=== PATIENT | male | born 1940 | race African-American/Black ===

== ENCOUNTER 2018-10-29 10:51 | Emergency (ER) | payer OTHER ==
[2018-10-29 11:55] LABS: Urine Color RED
[2018-10-29 11:56] LABS: Urine Appearance CLOUDY
[2018-10-29 11:57] LABS: Urine Bilirubin NEGATIVE (NEG); Urine Blood 3+ (NEG); Urine Glucose NEGATIVE (NEG); Urine Microscopic Reflex ORDER UMIC; Urine Protein 2+ (NEG); Urine Specific Gravity <=1.005 (1.005-1.030); Urine pH 7.5 (5.0-7.0)
[2018-10-29 12:23] LABS: Urine Bacteria <20 /HPF (NONE SEEN); Urine Culture Reflex Order REFLEXED; Urine RBC TNTC /HPF (NONE SEEN)
[2018-10-29] MEDS ORDERED: NACL 0.9% IRR SOLN 2,000 ML IRR ONE (13:14)
[2018-10-29] MEDS ORDERED: LIDOCAINE VISCOUS 2% SOLN 15 ML UDC ONE (13:14)
[2018-10-29 13:36] LABS: Absolute Monocytes 0.5 K/uL (0.1-1.3); Absolute Neutrophil 5.1 K/uL (1.8-8.0); Basophils % 1.2 % (0-1.3); Hematocrit 40.2 % (39.6-49.0); Lymphocytes % 14.1 % (15.3-44.8); MPV 11.3 fL (7.6-11.3); Monocytes % 6.9 % (3.3-12.3); RBC Red Blood Cell Count 4.45 M/uL (4.33-5.43)
[2018-10-29 14:26] LABS: Albumin 3.9 g/dL (3.4-5.0); Bilirubin Total 0.9 mg/dL (0.2-1.0); Potassium 3.9 mmol/L (3.5-5.1); Protein, Total 8.4 g/dL (6.4-8.2)
--- NOTE | 2018-10-29 15:05 | RAD REPORT ---
EXAM DESCRIPTION: CT - Abdomen Pelvis W Contrast - 10/29/2018 2:47 pm CLINICAL HISTORY: Abdominal pain/hematuria COMPARISON: 2016 TECHNIQUE: Computed axial tomography of the abdomen pelvis was obtained. 100 cc Isovue-300 was admin istered intravenously. Oral contrast was not requested which limits evaluation of bowel. All CT scans are performed using dose optimization technique as appropriate and may include automated exposure control or mA/KV adjustment according to patient size. FINDINGS: The liver, spleen, pancreas, and adrenals appear unremarkable. 5.7 centimeter left renal cyst is present. A smaller bilateral additional renal cysts are noted. A Fo irish catheter is present within the bladder. The right posterior-lateral bladder wall it is asymmetric ally thickened. The prostate gland is mildly enlarged. There is no evidence of diverticulitis. Small inguinal hernias are present Mild anterior subluxation of L4 on L5 and L5 on S1 is seen. Spondylolysis involves L5-S1. L4-5 disc i s obliterated Small umbilical hernia is present Wall of the distal stomach appears thickened IMPRESSION: Asymmetric thickening of the right posterolateral bladder wall may be related to cystiti s or mass Apparent thickening of the wall of the distal stomach may be secondary to inflammation
--- NOTE | 2018-10-29 15:09 | ER ---
Nurse's Notes [facility] Name: Adilson Moreira Age: 78 yrs Sex: Male : 1940 Arrival Date: 10/29/2018 Time: 10:55 Bed 20 Private MD: Hever De La Cruz Diagnosis: Acute cystitis with hematuria Presentation: 10/29 11:01 Presenting complaint: Patient states: i saw blood in my urine since yesterday morning; hj denies painful urination; denies fever and chills; denies N/.V;. Transition of care: patient was not received from another setting of care. Onset of symptoms was October 29, 2018. Risk Assessment: Do you want to hurt yourself or someone else? Patient reports no desire to harm self or others. Initial Sepsis Screen: Does the patient meet any 2 criteria? No. Patient's initial sepsis screen is negative. Does the patient have a suspected source of infection? No. Patient's initial sepsis screen is negative. Care prior to arrival: 11:01 Method Of Arrival: Ambulatory 11:01 Acuity: SOURAV 4 hj 11:29 Acuity: SOURAV 3 hb Triage Assessment: 11:03 General: Appears in no apparent distress. uncomfortable, Behavior is calm, cooperative, hj appropriate for age. Pain: Denies pain. Historical: - Allergies: : No Known Allergies; hj - Home Meds: 11:05 amlodipine 10 mg tab 1 tab once daily [Active]; carvedilol 12.5 mg oral tab 1 tab 2 hj times per day [Active]; esomeprazole magnesium 40 mg oral cpDR 1 cap 2 times per day [Active]; aspirin 81 mg Oral TbEC 1 tab once daily [Active]; - PMHx: 11:03 cancer, prostate; DVT; Hyperlipidemia; hj - PSHx: 11:03 Hernia repair; hj - Immunization history:: Adult Immunizations unknown. - Social history:: Smoking status: Patient/guardian denies using tobacco, Patient/guardian denies using alcohol. - Ebola Screening: : Patient negative for fever greater than or equal to 101.5 degrees Fahrenheit, and additional compatible Ebola Virus Disease symptoms Patient denies exposure to infectious person Patient denies travel to an Ebola-affected area in the 21 days before illness onset. Screenin:03 Abuse screen: Denies threats or abuse. Denies injuries from another. Nutritional hj screening: No deficits noted. Tuberculosis screening: No symptoms or risk factors identified. Fall Risk None identified. Assessment: 11:20 General: Appears in no apparent distress. Behavior is calm, cooperative. Pain: Denies hb pain. Neuro: Level of Consciousness is awake, alert, obeys commands, Oriented to person, place, time, situation. Cardiovascular: Capillary refill < 3 seconds Patient's skin is warm and dry. Respiratory: Airway is patent Respiratory effort is even, unlabored, Respiratory pattern is regular, symmetrical. GI: No signs and/or symptoms were reported involving the gastrointestinal system. : Reports blood in urine. EENT: No signs and/or symptoms were reported regarding the EENT system. Derm: Skin is intact, is healthy with good turgor. Musculoskeletal: No signs and/or symptoms reported regarding the musculoskeletal system. 12:15 Reassessment: Patient appears in no apparent distress at this time. No changes from previously documented assessment. Patient and/or family updated on plan of care and expected duration. Pain level reassessed. Patient is alert, oriented x 3, equal unlabored respirations, skin warm/dry/pink. 13:00 Reassessment: Patient appears in no apparent distress at this time. No changes from previously documented assessment. Patient and/or family updated on plan of care and expected duration. Pain level reassessed. Patient is alert, oriented x 3, equal unlabored respirations, skin warm/dry/pink. 13:50 Reassessment: Patient appears in no apparent distress at this time. No changes from previously documented assessment. Patient and/or family updated on plan of care and expected duration. Pain level reassessed. Patient is alert, oriented x 3, equal unlabored respirations, skin warm/dry/pink. 14:46 Reassessment: Patient appears in no apparent distress at this time. Patient and/or family updated on plan of care and expected duration. Pain level reassessed. 14:55 Reassessment: Dr. Weber at bedside. Vital Signs: 11:04 BP 128 / 69; Pulse 52; Resp 18; Temp 97.8(O); Pulse Ox 100% on R/A; Weight 77.11 kg; hj Height 5 ft. 9 in. (175.26 cm); Pain 0/10; 12:15 BP 136 / 70; Pulse 51; Resp 17; Pulse Ox 100% on R/A; Pain 0/10; hb 13:41 BP 159 / 73; Pulse 47; Resp 20; Temp 98.0(O); Pulse Ox 100% ; mh5 15:08 BP 143 / 72; Pulse 50; Resp 16; Temp 98.0(O); Pulse Ox 100% on R/A; mh5 11:04 Body Mass Index 25.10 (77.11 kg, 175.26 cm) ED Course: 10:55 Patient arrived in ED. mr 10:56 Hever De La Cruz MD is Private Physician. mr 11:02 Triage completed. hj 11:04 Arm band placed on right wrist. hj 11:04 Patient has correct armband on for positive identification. Bed in low position. Call light in reach. Side rails up X 1. 11:10 Eloise Diana, RN is Primary Nurse. hb 11:17 Christiano Hurst MD is Attending Physician. ps1 11:42 UA Sent. hb 11:42 UA MICROSCOPIC Sent. hb 13:28 Initial lab(s) drawn, by ok, sent to lab. Inserted saline lock: 20 gauge in right 5 antecubital area, using aseptic technique. Blood collected. 13:49 3-way catheter inserted, using sterile technique, 20 Fr. Returned bloody urine. hb 14:42 CT completed. Patient tolerated procedure well. Patient moved to CT via stretcher. jg6 Patient moved back from CT. 14:48 CT Abd/Pelvis - W/Contrast In Process Unspecified. EDMS 15:08 Colten Weber MD is Referral Physician. ps1 16:00 No provider procedures requiring assistance completed. hb 16:00 Patient did not have IV access during this emergency room visit. hb Administered Medications: No medications were administered Outcome: 15:09 Discharge ordered by . ps1 16:00 Discharged to home ambulatory. hb 16:00 Condition: stable 16:00 Discharge instructions given to patient, Instructed on discharge instructions, follow up and referral plans. medication usage, Demonstrated understanding of instructions, follow-up care, medications, Prescriptions given X 1. 16:10 Patient left the ED. iw Signatures: Dispatcher [facility] Phillip Scarlett mr Maria Ines Negrete RN RN Shaka Mason RN RN Eloise Diana RN RN hb Martinez, Maria 5 Christiano Hurst MD MD ps1 Garcia, Jessica jg6 Corrections: (The following items were deleted from the chart) 11:03 Home Meds: hydrochlorothiazide 25 mg Oral tab 1 tab once daily; [facility] 11:03 Home Meds: Xarelto 20 mg Oral tab 1 tab once daily; [facility] 11 11:04 77.11 kg; Height 5 ft. 9 in.; BMI: 25.1; Pain 0/10; [facility]
--- NOTE | 2018-10-29 15:10 | EDPHYS ---
Physician Documentation [facility] Name: Adilson Moreira Age: 78 yrs Sex: Male : 1940 Arrival Date: 10/29/2018 Time: 10:55 Bed 20 Private MD: Hever De La Cruz ED Physician Christiano Hurst HPI: 10/29 11:34 This 78 yrs old Black Male presents to ER via Ambulatory with complaints of blood in ps1 urine. 11:34 Patient states he has had painless hematuria for 2 days[address]. Patient of Dr. eunice Weber. No fever or urinary complaints otherwise. He is on daily aspirin. . Historical: - Allergies: 11:03 No Known Allergies; hj - Home Meds: 11:05 amlodipine 10 mg tab 1 tab once daily [Active]; carvedilol 12.5 mg oral tab 1 tab 2 hj times per day [Active]; esomeprazole magnesium 40 mg oral cpDR 1 cap 2 times per day [Active]; aspirin 81 mg Oral TbEC 1 tab once daily [Active]; - PMHx: 11:03 cancer, prostate; DVT; Hyperlipidemia; hj - PSHx: 11:03 Hernia repair; hj - Immunization history:: Adult Immunizations unknown. - Social history:: Smoking status: Patient/guardian denies using tobacco, Patient/guardian denies using alcohol. - Ebola Screening: : Patient negative for fever greater than or equal to 101.5 degrees Fahrenheit, and additional compatible Ebola Virus Disease symptoms Patient denies exposure to infectious person Patient denies travel to an Ebola-affected area in the 21 days before illness onset. ROS: 11:34 Constitutional: Negative for fever, chills, and weight loss, Eyes: Negative for injury, ps1 pain, redness, and discharge, ENT: Negative for injury, pain, and discharge, Cardiovascular: Negative for chest pain, palpitations, and edema, Respiratory: Negative for shortness of breath, cough, wheezing, and pleuritic chest pain, Abdomen/GI: Negative for abdominal pain, nausea, vomiting, diarrhea, and constipation, Skin: Negative for injury, rash, and discoloration, Neuro: Negative for headache, weakness, numbness, tingling, and seizure, Psych: Negative for depression, anxiety, suicide ideation, homicidal ideation, and hallucinations. 11:34 : Positive for hematuria. Exam: 11:34 Constitutional: This is a well developed, well nourished patient who is awake, alert, ps1 and in no acute distress. Head/Face: Normocephalic, atraumatic. Chest/axilla: Normal chest wall appearance and motion. Nontender with no deformity. No lesions are appreciated. Cardiovascular: Regular rate and rhythm. No gallops, murmurs, or rubs. Normal PMI, no JVD. No pulse deficits. Respiratory: Lungs have equal breath sounds bilaterally, clear to auscultation and percussion. No rales, rhonchi or wheezes noted. No increased work of breathing, no retractions or nasal flaring. Abdomen/GI: Soft, non-tender, with normal bowel sounds. No distension or tympany. No guarding or rebound. No evidence of tenderness throughout. MS/ Extremity: Pulses equal, no cyanosis. Neurovascular intact. Full, normal range of motion. Neuro: Awake and alert, GCS 15, oriented to person, place, time, and situation. Cranial nerves II-XII grossly intact. Sensory grossly intact. Psych: Awake, alert, with orientation to person, place and time. Behavior, mood, and affect are within normal limits. 11:34 : blood at meatus. Vital Signs: 11:04 BP 128 / 69; Pulse 52; Resp 18; Temp 97.8(O); Pulse Ox 100% on R/A; Weight 77.11 kg; hj Height 5 ft. 9 in. (175.26 cm); Pain 0/10; 12:15 BP 136 / 70; Pulse 51; Resp 17; Pulse Ox 100% on R/A; Pain 0/10; hb 13:41 BP 159 / 73; Pulse 47; Resp 20; Temp 98.0(O); Pulse Ox 100% ; mh5 15:08 BP 143 / 72; Pulse 50; Resp 16; Temp 98.0(O); Pulse Ox 100% on R/A; mh5 11:04 Body Mass Index 25.10 (77.11 kg, 175.26 cm) MDM: 11:33 Patient medically screened. ps1 15:11 Data reviewed: vital signs, nurses notes, and as a result, I will discharge patient. ps1 Counseling: I had a detailed discussion with the patient and/or guardian regarding: the historical points, exam findings, and any diagnostic results supporting the discharge/admit diagnosis, lab results, radiology results, the need for outpatient follow up, for definitive care, a urologist. ED course: 3 way [place] improved hematuria. Dr. Weber evaluated patient. Requested discharge with Macrobid. . 10/29 11:31 Order name: UA; Complete Time: 12:47 bd 10/29 12:10 Order name: Urine Microscopic Only; Complete Time: 12:47 EDMS 10/29 12:24 Order name: Urine Culture EDAZ 10/29 13:00 Order name: CBC with Diff; Complete Time: 14:27 ps1 10/29 13:00 Order name: CMP; Complete Time: 14:28 ps1 10/29 11:42 Order name: Urine Dipstick-Ancillary (obtain specimen); Complete Time: 11:42 hb 10/29 13:00 Order name: CT Abd/Pelvis - W/Contrast; Complete Time: 15:07 ps1 10/29 13:00 Order name: Al[place]-Three way; Complete Time: 13:50 ps1 10/29 13:00 Order name: Bladder Irrigation; Complete Time: 13:50 ps1 10/29 13:40 Order name: Labs - recollect needed; Complete Time: 13:50 bd Administered Medications: No medications were administered Disposition: 10/29/18 15:09 Discharged to Home. Impression: Acute cystitis with hematuria. - Condition is Stable. - Discharge Instructions: Urinary Tract Infection, Adult, [id number]. - Prescriptions for Macrobid 100 mg Oral Capsule - take 1 capsule by ORAL route every 12 hours for 14 days; 28 capsule. - Medication Reconciliation Form, Thank You Letter, Antibiotic Education, Prescription Opioid Use form. - Follow up: Colten Weber MD; When: 2 - 3 days; Reason: Further diagnostic work-up, Recheck today's complaints, Continuance of care, Re-evaluation by your physician. Follow up: Emergency Department; When: As needed; Reason: Fever > 102 F, Worsening of condition. - Problem is new. - Symptoms have improved. Signatures: Dispatcher [employer] EDAZ Tsering Brito Irene, RN RN iw Shaka Mason RN RN hj Baxter, Heather, RN RN hb Singer, Phillip, MD MD ps1 Corrections: (The following items were deleted from the chart) 11:05 11:03 Home Meds: hydrochlorothiazide 25 mg Oral tab 1 tab once daily; hj 11:05 11:03 Home Meds: Xarelto 20 mg Oral tab 1 tab once daily; hj hj 16:10 15:09 10/29/2018 15:09 Discharged to Home. Impression: Acute cystitis with hematuria. iw Condition is Stable. Forms are Medication Reconciliation Form, Thank You Letter, Antibiotic Education, Prescription Opioid Use. Follow up: Colten Weber; When: 2 - 3 days; Reason: Further diagnostic work-up, Recheck today's complaints, Continuance of care, Re-evaluation by your physician. Follow up: Emergency Department; When: As needed; Reason: Fever > 102 F, Worsening of condition. Problem is new. Symptoms have improved. ps1
[2018-10-29 16:17] VITALS: O2SAT 100
[2018-10-29 16:20] VITALS: TEMP 98
[2018-10-29 16:21] VITALS: BP 143/72
== END 2018-10-29 16:10 | disposition home or self-care (01) ==
LOC: ER 10:51
DX: N30.01 Acute cystitis with hematuria (principal); E78.5 Hyperlipidemia, unspecified
CPT/HCPCS: 36415; 74177; 80053; 85025; 87086; 87088; 99284; Q9967; 81003; 81015

== ENCOUNTER 2019-12-16 09:32 | Emergency (ER) | payer OTHER ==
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
[2019-12-16 12:13] VITALS: BP 153/92; TEMP 98; O2SAT 97
== END 2019-12-16 11:56 | disposition home or self-care (01) ==
LOC: ER 09:32
DX: S16.1XXA Strain of muscle, fascia and tendon at neck level, initial encounter (principal); V43.62XA Car passenger injured in collision with other type car in traffic accident, initial encounter; Y93.89 Activity, other specified; Y92.410 Unspecified street and highway as the place of occurrence of the external cause; M54.5 Low back pain; M25.511 Pain in right shoulder; M47.896 Other spondylosis, lumbar region; E78.5 Hyperlipidemia, unspecified; Z85.46 Personal history of malignant neoplasm of prostate
CPT/HCPCS: 70450; 72100; 72125; 99283